=== PATIENT | male | born 1995 | race Caucasian/White ===

== ENCOUNTER 2017-12-11 12:58 | Emergency (ER) | payer OTHER ==
[~2017-12-11] VITALS: Ht 185.4 cm; Wt 102.1 kg
[~2017-12-11 12:58] MED LIST: ANTACID650 MG PO; APAP500 PO; AUGMENTIN 875-1 EACH PO; CLONIDINE0.1 PO; COLACE100 MG PO; EXCEDRIN CAPLE1 EACH PO; HYDROCODONE-APA1 TA1 PO; METHADONE HCL40 MG PO; MIRALAX17 GM PO; NORCO 5-325 TA1 EACH PO; NORVASC10 MG PO; ONDANSETRON HCL4 M2 PO; PHENERGAN 25 MG25 M1 PO; PROTONIX40 M1 PO; ROBAXIN500 MG PO; TRANSDERM-SCO1 PATC1 TRANSDERM
[2017-12-11] MEDS ORDERED: MEDROLDOSEPACK PO (13:52)
[2017-12-11] MEDS ORDERED: BACTRIM DS TAB1 EAC1 PO (13:52)
[2017-12-11 14:03] VITALS: BP 138/72
== END 2017-12-11 14:04 | disposition home or self-care (01) ==
LOC: M.ERS 12:58
DX: L03.113 Cellulitis of right upper limb (principal)

== ENCOUNTER 2021-01-28 20:31 | Emergency (ER) | payer OTHER ==
[~2021-01-28] VITALS: Ht 185.4 cm; Wt 127.5 kg
[~2021-01-28 20:31] MED LIST changes: +BACTRIM DS TAB1 EAC1 PO; +MEDROLDOSEPACK PO
[2021-01-28] MEDS ORDERED: LEXAPRO (20:43)
[2021-01-28 21:24] LABS: ABSOLUTE EOSINOPHILS 0.1 thou/uL (0.0-0.7); ABSOLUTE LYMPHOCYTES 1.9 thou/uL (0.8-5.3); ABSOLUTE MONOCYTES 1.2 thou/uL (0.0-1.2); ABSOLUTE NEUTROPHILS 8.3 thou/uL (1.6-8.1); BASOPHILS 0.3 %; EOSINOPHILS 1.2 %; HEMATOCRIT 35.4 % (42.0-52.0); LYMPHOCYTES 16.2 %; MCH 26.3 pg (26.0-34.0); MCHC 33.9 g/dL (28.0-37.0); MCV 77.8 fL (80.0-100.0); MONOCYTES 10.6 %; NUCLEATED RBCS 0 /100WBC; PLATELET COUNT* 378 thou/uL (150-400); POLYS 71.7 %; RBC 4.55 mil/uL (4.50-6.00); RDW-CV 13.8 % (10.5-14.5); WBC 11.5 thou/uL (4.0-11.0)
[2021-01-28 21:39] LABS: ALBUMIN 3.5 g/dL (3.4-5.0); ALKALINE PHOSPHATASE 132 U/L (46-116); ANION GAP 11 mmol/L (7-16); CALCIUM 9.8 mg/dL (8.5-10.1); CHLORIDE 99 mmol/L (98-107); CO2 26 mmol/L (21-32); CREATININE 0.8 mg/dL (0.6-1.3); GLUCOSE 109 mg/dL (70-99); MAGNESIUM 2.2 mg/dL (1.8-2.4); NT-PRO BRAIN NAT PEPTIDE < 5 pg/mL (<300); POTASSIUM 4.2 mmol/L (3.5-5.1); SGOT 17 U/L (15-37); SGPT 28 U/L (30-65); SODIUM 136 mmol/L (136-145); TOTAL BILIRUBIN 0.5 mg/dL (<0.1-1.0); TOTAL PROTEIN 8.7 g/dL (6.4-8.2)
[2021-01-28 21:45] LABS: URINE BILIRUBIN NEGATIVE (Negative); URINE BLOOD NEGATIVE (Negative); URINE CLARITY CLEAR; URINE COLOR YELLOW; URINE GLUCOSE-RANDOM NEGATIVE (Negative); URINE KETONES NEGATIVE (Negative); URINE LEUKOCYTES-REFLEX NEGATIVE (Negative); URINE NITRITE-REFLEX NEGATIVE (Negative); URINE PROTEIN NEGATIVE (Negative); URINE SPECIFIC GRAVITY >= 1.030 (1.005-1.030); URINE UROBILINOGEN 0.2 E.U./dl (0.2-1.0)
[2021-01-28 21:48] LABS: BUN 12 mg/dL (7-18)
[2021-01-28 21:55] LABS: AMP/METHAMP POSITIVE (Negative); BARBITURATES Negative (Negative); BENZODIAZEPINES Negative (Negative); COCAINE Negative (Negative); METHADONE Negative (Negative); OPIATES POSITIVE (Negative); PCP Negative (Negative); THC POSITIVE (Negative)
[2021-01-28] MEDS ORDERED: DOXYCYCLINE 10100 MG PO (22:08)
[2021-01-28] MEDS ORDERED: VENTOLIN HFA 1818 GM INH (22:08)
[2021-01-28 22:40] VITALS: BP 132/65
--- NOTE | 2021-01-29 11:18 | EKG ---
[place] [address] ELECTROCARDIOGRAM REPORT Name: KEMAR TAYLOR JR Room: 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
== END 2021-01-28 22:41 | disposition home or self-care (01) ==
LOC: M.ERS 20:31
PROVIDERS: Nurse Practitioner Family
DX: J18.1 Lobar pneumonia, unspecified organism (principal); J90 Pleural effusion, not elsewhere classified; F19.10 Other psychoactive substance abuse, uncomplicated; Z20.822 Contact with and (suspected) exposure to COVID-19; Z79.899 Other long term (current) drug therapy

== ENCOUNTER 2021-11-18 19:37 | Emergency (ER) | payer OTHER ==
[~2021-11-18] VITALS: Ht 185.4 cm; Wt 90.7 kg
[~2021-11-18 19:37] MED LIST changes: +DOXYCYCLINE 10100 MG PO; +LEXAPRO; +VENTOLIN HFA 1818 GM INH
[2021-11-18 22:09] VITALS: BP 147/96
== END 2021-11-18 22:10 ==
LOC: M.ERS 19:37
DX: Z02.89 Encounter for other administrative examinations (principal)